=== PATIENT | female | born 1975 | race Caucasian/White ===

== ENCOUNTER 2025-08-09 21:48 | Emergency (ER) | payer MEDICAID, SELFPAY ==
[2025-08-09 22:14] VITALS: BP 163/98; PULSE 82; RESP 17; TEMP 36.8; O2SAT 95
--- NOTE | 2025-08-09 22:26 | ED.GENADULT ---
HPI - General Adult General Chief complaint: Psychiatric Symptoms Stated complaint: depression Time Seen by Provider: 08/09/25 21:53 History of Present Illness HPI narrative: This is a 49 female presenting for suicidal ideation. Patient says that she has been on a downward spiral since she lost her job. She then lost her car and then was evicted. She is now homeless. She is tired of how hard her life is wants to stand. She does not have a plan. No access to a firearm. Denies use of drugs or alcohol. Related Data Allergies Allergy/AdvReac Type Severity Reaction Status Date / Time No Known Allergies Allergy Verified 08/09/25 21:48 [facility] [place] Social History Social History Substance use type: methamphetamine Exam Narrative: APPEARANCE: No apparent distress. Head: atraumatic. EYES: EOMI, NOSE: Atraumatic NECK: Trachea midline RESPIRATORY: No increased rate of breathing CARDIOVASCULAR: RRR, ABDOMINAL: Non-distended MUSCULOSKELETAl: No obvious deformities NEURO: Alert. Moving 4/4 extremities SKIN:: Warm, dry. Normal color PSYCHIATRIC: Normal affect Course Vital Signs Vital signs: Vital Signs Temperature 98.3 F 08/09/25 22:14 Pulse Rate 82 08/09/25 22:14 Respiratory Rate 17 08/09/25 22:14 Blood Pressure 163/98 H 08/09/25 22:14 Pulse Oximetry 95 08/09/25 22:14 Oxygen Delivery Room Air 08/09/25 22:14 Temperature 98.0 F 08/10/25 02:08 Pulse Rate 80 08/10/25 02:08 Respiratory Rate 16 08/10/25 02:08 Blood Pressure 158/88 H 08/10/25 02:08 Pulse Oximetry 96 08/10/25 02:08 Oxygen Delivery Room Air 08/09/25 22:14 Medical Decision Making MDM Narrative Medical decision making narrative: -Course: 49-year-old female presenting for suicidal ideation. Screening lab work obtained. Urine indicative infection. Patient is medically cleared. Patient was evaluated by crisis team was safety planned. She was given resources for housing psychiatric care. Patient will be discharged. RX antibiotics for UTI. Vital Signs Vital Signs: Vital Signs Temperature 98.3 F 08/09/25 22:14 Pulse Rate 82 08/09/25 22:14 Respiratory Rate 17 08/09/25 22:14 Blood Pressure 163/98 H 08/09/25 22:14 Pulse Oximetry 95 08/09/25 22:14 Oxygen Delivery Room Air 08/09/25 22:14 Temperature 98.0 F 08/10/25 02:08 Pulse Rate 80 08/10/25 02:08 Respiratory Rate 16 08/10/25 02:08 Blood Pressure 158/88 H 08/10/25 02:08 Pulse Oximetry 96 08/10/25 02:08 Oxygen Delivery Room Air 08/09/25 22:14 Lab Data 08/09/25 22:24 08/09/25 22:24 Labs: Lab Results 08/09/25 08/09/25 Range/Units 22:24 22:26 WBC 9.4 (4.5-10.0) K/mm3 RBC 4.52 (4.2-5.4) M/mm3 Hgb 13.6 (12.0-15.0) g/dL Hct 40.4 (37.0-47.0) % MCV 89.4 (80-100) fl MCH 30.1 (26-34) pg MCHC 33.7 (32-36) g/dl RDW 13.6 (11.5-14.5) % Plt Count 244 (150-375) k/mm3 MPV 10.5 H (7.4-10.4) fl Immature Gran % (Auto) 0.2 (0-0.5) % Neut % (Auto) 71.4 (45.5-73.1) % Lymph % (Auto) 20.1 (18.3-44.2) % [place] % (Auto) 6.4 (2.6-8.5) % Eos % (Auto) 1.2 (0-4.4) % Baso % (Auto) 0.7 (0.2-1.2) % Lymph # (Auto) 1.89 (0.9-3.2) K/mm3 [place] # (Auto) 0.6 (0.1-0.6) K/mm3 Eos # (Auto) 0.1 (0-0.3) K/mm3 Baso # (Auto) 0.1 (0.0-0.1) K/mm3 Abs Immat Gran (auto) 0.02 (0.00-0.031) K/mm3 Absolute Neuts (auto) 6.7 (1.3-6.7) K/mm3 Absolute Nucleated RBC 0.000 (0.0-0.012) K/mm3 Nucleated RBC % 0.0 (0.0-0.2) % Sodium 137 (137-145) mmol/L Potassium 3.7 (3.4-5.0) mmol/L Chloride 105 (98-107) mmol/L Carbon Dioxide 22 (22-30) mmol/L Anion Gap 10 (4-12) mmol/L BUN 21 H (7-17) mg/dL Creatinine 0.76 (0.7-1.0) mg/dL Estim Creat Clear Calc 62 ml/min Estimated GFR > 60 (59 - ) Glucose 95 (65-110) mg/dL Calcium 9.4 (8.4-10.2) mg/dL Total Bilirubin 0.3 (0.2-1.3) mg/dL AST 31 (14-36) U/L ALT 20 (6-35) U/L Alkaline Phosphatase 86 (38-126) U/L Total Protein 7.3 (6.3-8.2) g/dL Albumin 4.7 (3.5-5.1) g/dL TSH (Reflex) 2.560 (0.465-4.68) uIU/mL Free T4 1.11 (0.78-2.19) ng/dL Urine Color Dark yellow (Yellow) Urine Appearance Cloudy H (Clear) Urine pH 5.0 (5.0-9.0) Ur Specific [place] 1.030 (1.001-1.035) Urine Protein 1+ H (Negative) mg/dL Urine Glucose (UA) Negative (Negative) mg/dL Urine Ketones Trace H (Negative) mg/dL Ur Blood (Man) Trace (Negative) Urine Nitrate Positive H (Negative) Urine Bilirubin 1+ H (Negative) Urine Urobilinogen 1.0 (<2.0) mg/dL Add Ur Microanalysis Reviewed Leukocyte Esterase Rfl 1+ H (Negative) KALYAN/UL Urine RBC 0-2 (0-2) /hpf Urine WBC 21-50 H (0-3) /hpf Ur Squamous Epith Cells Few (Few) /hpf Urine Bacteria 4+ H /hpf Urine Casts 3-5 Hyaline Casts Present (None) /lpf POC Urine HCG, Qual Negative (Negative) Salicylates < 1.0 L (2-20) mg/dL Urine Opiates Screen Negative (Negative) Urine Methadone Screen Negative (Negative) Acetaminophen < 10 L (10-30) ug/mL Ur Barbiturates Screen Negative (Negative) Ur Phencyclidine Scrn Negative (Negative) Ur Amphetamine Screen Positive (Negative) U Benzodiazepines Scrn Negative (Negative) Urine Cocaine Screen Negative (Negative) U Cannabinoids Screen Negative (Negative) Ethyl Alcohol 19 (<10) mg/dL Influenza A (RT-PCR) Negative (Negative) Influenza B (RT-PCR) Negative (Negative) RSV (RT-PCR) Negative (Negative) SARS-CoV-2 RNA (RT-PCR) Negative (Negative) Discharge Plan Discharge Clinical Impression: Amphetamine abuse, UTI (urinary tract infection), Depression Patient Disposition: Home Condition: Stable Instructions: Antibiotic Form, Urinary Tract Infection in Women (DC) Additional Instructions: Please follow-up with the resources provided to you by the crisis team. Please complete a course of Keflex for urinary tract infection. Please return to ED if you develop thoughts of harming herself or others. Patient Language: Belarusian Prescriptions: New cephalexin 500 mg capsule 500 mg PO Q12H Qty: 10 0RF Follow-up/Referrals: PHYSICIAN,WATCH [employer]LECTRICIAN [Primary Care Provider, Internal Medicine]
[2025-08-09 22:27] LABS: BEDSIDEPREGUCG Negative (Negative)
[2025-08-09 22:34] LABS: Hematocrit 40.4 % (37.0-47.0); Hemoglobin 13.6 g/dL (12.0-15.0); Immature Granulocyte Percent A 0.2 % (0-0.5); Lymphocytes Absolute Auto 1.89 K/mm3 (0.9-3.2); Mean Corpuscular HGB Conc 33.7 g/dl (32-36); Mean Corpuscular Hemoglobin 30.1 pg (26-34); Mean Corpuscular Volume 89.4 fl (80-100); Nucleated Red Blood Cells Absolute Auto 0.000 K/mm3 (0.0-0.012); Nucleated Red Blood Cells Perc 0.0 % (0.0-0.2); Platelet Count Result 244 k/mm3 (150-375); Red Blood Count 4.52 M/mm3 (4.2-5.4); White Blood Count 9.4 K/mm3 (4.5-10.0)
[2025-08-09 22:42] LABS: Alanine Aminotransferase 20 U/L (6-35); Albumin Level 4.7 g/dL (3.5-5.1); Alkaline Phosphatase 86 U/L (38-126); Anion Gap 10 mmol/L (4-12); Aspartate Amino Transferase 31 U/L (14-36); Bilirubin,Total 0.3 mg/dL (0.2-1.3); Blood Urea Nitrogen 21 mg/dL (7-17); Calcium 9.4 mg/dL (8.4-10.2); Carbon Dioxide 22 mmol/L (22-30); Chloride 105 mmol/L (98-107); Estimated CRCL calculation 62 ml/min; Estimated Glomerular Filt Rate > 60; Glucose 95 mg/dL (65-110); Potassium 3.7 mmol/L (3.4-5.0); Sodium 137 mmol/L (137-145); Total Protein 7.3 g/dL (6.3-8.2)
[2025-08-09 22:43] LABS: Add Urine Microscopic? YES; Appearance Urine Cloudy (Clear); Glucose Urine UA Negative (Negative); Leukocyte Esterase Ur 1+ LEU/UL (Negative); Need Manual Microscopic Reviewed; Nitrate Urine Positive (Negative); Specific Grav Ur 1.030 (1.001-1.035)
[2025-08-09 22:44] LABS: Acetaminophen < 10 ug/mL (10-30); Salicylate < 1.0 mg/dL (2-20)
[2025-08-09 23:05] LABS: Cannabinoid Screen Urine Negative (Negative)
[2025-08-09 23:07] LABS: Free T4 Free Thyroxine 1.11 ng/dL (0.78-2.19)
[2025-08-09 23:09] LABS: Influenza A QL RT-PCR Negative (Negative); Influenza B QL RT-PCR Negative (Negative); RSV RNA, RT-PCR Negative (Negative); SARS-CoV-2 RNA PCR Negative (Negative)
[2025-08-09 23:21] LABS: Thyroid Stimulating Hormone Reflex 2.560 uIU/mL (0.465-4.68)
[2025-08-10] MEDS: ACETAMINOPHEN 500 MG TABLET 1000 MG PO (02:07)
[2025-08-10 02:08] VITALS: BP 158/88; PULSE 80; RESP 16; TEMP 36.7; O2SAT 96
== END 2025-08-10 03:52 | disposition home or self-care (01) ==
PROVIDERS: Emergency Provider Emergency Medicine
DX: F32.A Depression, unspecified (principal); F15.10 Other stimulant abuse, uncomplicated; N39.0 Urinary tract infection, site not specified; Z11.52 Encounter for screening for COVID-19; Z59.00 Homelessness unspecified
CPT/HCPCS: 36415; 80053; 80143; 80179; 80307; 81001; 81025; 82077; 84439; 84443; 85025; 87086; 87186; 87637; 99284; A9270